=== PATIENT | female | born 1980 | race Caucasian/White ===

== ENCOUNTER 2024-05-13 16:40 | Emergency (ER) | payer MEDICAID ==
[~2024-05-13] VITALS: Ht 165.1 cm; Wt 72.5 kg
[2024-05-13 16:50] VITALS: O2SAT 100
[2024-05-13] MEDS ORDERED: METH-653 MT (19:24)
[2024-05-13] MEDS ORDERED: IBUP-2029 MT (19:24)
[2024-05-13 20:44] VITALS: BP 136/84; PULSE 83; RESP 16; TEMP 36.61404; O2SAT 100
== END 2024-05-13 20:47 | disposition home or self-care (01) ==
LOC: ER 17:34
DX: S82.61XA Displaced fracture of lateral malleolus of right fibula, initial encounter for closed fracture (principal); S20.219A Contusion of unspecified front wall of thorax, initial encounter; R56.9 Unspecified convulsions; Z98.890 Other specified postprocedural states; Z90.710 Acquired absence of both cervix and uterus; V43.52XA Car driver injured in collision with other type car in traffic accident, initial encounter; Y93.89 Activity, other specified; Y92.410 Unspecified street and highway as the place of occurrence of the external cause; Y99.8 Other external cause status
CPT/HCPCS: 29515; 71045; 73600; 99284